=== PATIENT | female | born 1970 | race Caucasian/White ===

== ENCOUNTER → 2017-12-25 | Outpatient (CLI) | payer BC ==
[~2017-12-25] MED LIST: ALBUAER2 INH; MULT-506 PO
--- NOTE | 2017-12-26 14:33 | MAMMOGRAPHY REPORT ---
BILATERAL DIGITAL SCREENING MAMMOGRAM TOMOSYNTHESIS WITH CAD: 12/25/2017 CLINICAL HISTORY: Routine screening. Patient has no complaints. TECHNIQUE: Breast tomosynthesis in addition to standard 2D mammography was performed. Current study was also evaluated with a Computer Aided Detection (CAD) system. COMPARISON: Comparison is made to exams dated: 06/28/2016 mammogram, 02/02/2015 mammogram, 12/18/2013 ma mmogram, and 01/16/2010 mammogram - [facility]. BREAST COMPOSITION: The tissue of both breasts is heterogeneously dense, which may obscure small mas ses. FINDINGS: There is an asymmetry seen within the right medial posterior breast on the cc view only, fo r which spot compression tomosynthesis views and possible breast ultrasound are recommended for furth er evaluation. The remainder of both breasts are stable compared to prior exams, without suspicious masses, calcific ations, or areas of architectural distortion noted. IMPRESSION: ACR BI-RADS CATEGORY 0: INCOMPLETE EVALUATION: NEED ADDITIONAL IMAGING EVALUATION Right breast asymmetry, for which additional imaging evaluation is recommended. The patient will be called to schedule an appointment. Approximately 10% of breast cancers are not detected with mammography. A negative mammographic report should not delay biopsy if a clinically suggestive mass is present. Taylor Verdin M.D. /:12/25/2017 17:15:43 Special Needs Caregiver: Dora RAPHAEL(Regi)(M), [facility] letter sent: Addl Imaging 0 BI-RADS Code: ACR BI-RADS Category 0: Incomplete Evaluation: Need Additional Imaging Evaluation
== END | disposition home or self-care (01) ==
LOC: C.MAMM 16:53
PROVIDERS: ATTEND Obstetrics & Gynecology
DX: Z12.31 Encounter for screening mammogram for malignant neoplasm of breast (principal); N64.89 Other specified disorders of breast

== ENCOUNTER → 2018-01-17 | Outpatient (CLI) | payer BC ==
--- NOTE | 2018-01-17 14:42 | MAMMOGRAPHY REPORT ---
UNILATERAL RIGHT DIGITAL DIAGNOSTIC MAMMOGRAM TOMOSYNTHESIS AND TARGETED RIGHT ULTRASOUND: 01/17/2018 CLINICAL HISTORY: 47 year old woman called back from screening for an asymmetry in the medial, far po sterior right breast only seen on the CC view. Family history of breast cancer = maternal aunts and maternal grandmother. TECHNIQUE: Exaggerated medial right CC 2-D and tomosynthesis, spot compression right CC and MLO tomos ynthesis images were obtained. COMPARISON: Comparison is made to exams dated: 12/25/2017 mammogram, 06/28/2016 mammogram, 02/02/2015 ma mmogram, 12/18/2013 mammogram, and 01/16/2010 mammogram - [facility]. BREAST COMPOSITION: The tissue of the right breast is heterogeneously dense, which may obscure small masses. FINDINGS: The exaggerated medial right CC view demonstrates a persistent flame-shaped densities asym metry in the medial, far posterior breast. No definite muscle fibers are clearly identified. A latha lar appearance is noted on the spot compression right CC tomosynthesis images near the edge of the pa ddle. No corresponding abnormality is identified on the spot compression MLO view. An asymmetry in this location could possibly represent sternalis muscle normal anatomic variant, but the tomosynthesi s imaging is not definitive and therefore further evaluation with ultrasound was performed. There is no evidence of architectural distortion or calcification. Targeted ultrasound was performed throughout the medial right breast. The patient reports an area of prior surgery in the medial right breast with an occasional palpable lump in the 3:00 axis, not curr ently felt today. There is dense glandular tissue in the 2:00 right breast, 7 cm from the nipple but no discrete solid or cystic mass is identified. No sonographic correlate for the mammographic asymm etry. IMPRESSION: ACR-BI-RADS CATEGORY 3: PROBABLY BENIGN, TARGETED ULTRASOUND ACR-BI-RADS CATEGORY 3: PRO BABLY BENIGN 1. There is a persistent dense asymmetry in the medial, far posterior right breast, but no suspiciou s sonographic correlate identified. Differential considerations include: sternalis muscle normal davey iant or normal overlapping fibroglandular tissue, given that the right CC appearance is somewhat latha lar to the right CC view obtained on 12/18/2013. However, a short interval follow-up right diagnosti c tomosynthesis mammogram and possible ultrasound is recommended to ensure stability in 6 months. These results and recommendations were discussed with the patient at the time of the exam. Approximately 10% of breast cancers are not detected with mammography. A negative mammographic report should not delay biopsy if a clinically suggestive mass is present. Danyell Thao M.D. ay/:01/17/2018 12:33:05 [place]utter: Kasia CARTAGENA)(Rafael), [facility] letter sent: Follow Up Recommended 3 BI-RADS Code: ACR-BI-RADS Category 3: Probably Benign Ultrasound BI-RADS: ACR-BI-RADS Category 3: Pr obably Benign
== END | disposition home or self-care (01) ==
LOC: C.MAMM 09:45
PROVIDERS: ATTEND Obstetrics & Gynecology
DX: R92.2 Inconclusive mammogram (principal); Z80.3 Family history of malignant neoplasm of breast